=== PATIENT | female | born 1995 | race Caucasian/White ===

== ENCOUNTER → 2022-07-02 | Outpatient (CLI) | payer OTHER ==
[2022-07-02 11:10] LABS: ALBUMIN 4.8 g/dL (3.5-5.0); POTASSIUM 3.4 mmol/L (3.5-5.1)
[2022-07-02 11:11] LABS: CALCIUM 9.4 mg/dL (8.3-10.5)
[2022-07-02 11:13] LABS: TOTAL PROTEIN 7.5 g/dL (6.4-8.3)
[2022-07-02 11:15] LABS: TOTAL BILIRUBIN 2.9 mg/dL (0.2-1.2)
[2022-07-02 11:26] LABS: BASO # 0.03 K/mm3 (0.02-0.10); HEMOGLOBIN 14.4 g/dL (12.5-16.0); LYMPH# 1.28 K/mm3 (1.50-4.00); MEAN CELL VOLUME 88 fl (78-100); MEAN CORPUSCULAR HEMOGLOBIN 30 pg (27-31); MEAN CORPUSCULAR HGB CONC 34 g/dL (33-37); MEAN PLATELET VOLUME 9.4 fl (7.4-10.4); MONO # 0.27 K/mm3 (0.20-0.80); NEU # 1.62 K/mm3 (1.40-6.50); PLATELET COUNT 245 K/mm3 (130-400); RED BLOOD COUNT 4.87 M/mm3 (4.10-5.30); RED CELL DISTRIBUTION WIDTH 12.1 % (11.5-14.5); WHITE BLOOD COUNT 3.3 K/mm3 (4.8-10.8)
== END ==
LOC: LAB 10:41
PROVIDERS: Physician Assistant
DX: Z13.29 Encounter for screening for other suspected endocrine disorder (principal); Z13.1 Encounter for screening for diabetes mellitus; Z13.220 Encounter for screening for lipoid disorders; K90.9 Intestinal malabsorption, unspecified; J30.2 Other seasonal allergic rhinitis; R63.4 Abnormal weight loss; Z76.89 Persons encountering health services in other specified circumstances; Z28.39 Other underimmunization status; Z97.5 Presence of (intrauterine) contraceptive device